=== PATIENT | male | born 1945 | race Caucasian/White ===

== ENCOUNTER 2017-09-21 09:44 | Day surgery (SDC) | payer OTHER ==
[2017-09-21 10:11] VITALS: BMI 27.2
[2017-09-21] MEDS ORDERED: PROPOFOL 20 ML ONE ×2 (10:31)
[2017-09-21 11:02] VITALS: TEMP 97.7
[2017-09-21 11:44] VITALS: BP 137/72; PULSE 51
--- NOTE | 2017-09-26 09:43 | PATH ---
Surgical Pathology Report Patient Name: RONA CORTES [facility]. Rec. #: [id number] /Age/Gender: 1945 (Age: 72) / M Account: [id number] Location: [facility]-ENDOSCOPY Taken: 09/21/2017 Received: 09/21/2017 Reported: 09/26/2017 Physicians: David Burks M.D. Specimen(s) Received A: BX SECOND PORTION DUODENUM AND BULB B: ANTRUM Clinical History It Abdominal pain, history of colon polyps Postoperative diagnosis: Duodenal bulb ulcer, gastritis Final Diagnosis A. DUODENUM, SECOND PORTION AND DUODENAL BULB, BIOPSY: DUODENAL MUCOSA WITH VASCULAR CONGESTION, FOCAL ACUTE HEMORRHAGE, AND EROSION. B. STOMACH, ANTRUM, BIOPSY: GASTRIC ANTRAL MUCOSA WITH MILD CHRONIC GASTRITIS. IMMUNOHISTOCHEMICAL STAIN FOR H. PYLORI IS NEGATIVE. Electronically Signed Judy Lawson M.D. Gross Description A. Received in formalin, labeled "biopsy second portion of duodenum and bulb" are 3 meyer, irregular portions of soft tissue ranging from 0.4-0.6 cm. in greatest dimension. The specimens are submitted in toto in one cassette. B. Received in formalin, labeled "antrum" are 2 meyer, irregular portions of soft tissue measuring 0.5 and 0.7 cm. in greatest dimension. The specimens are submitted in toto in one cassette. 09/21/201709/21/2017
== END 2017-09-21 12:04 | disposition home or self-care (01) ==
LOC: JASU-ENDO 09:44
PROVIDERS: ATTEND Internal Medicine Gastroenterology
PROC: 0DB98ZX Excision of Duodenum, Via Natural or Artificial Opening Endoscopic, Diagnostic (ICD-10-PCS; principal; 2017-09-21)
PROC: 0DB68ZX Excision of Stomach, Via Natural or Artificial Opening Endoscopic, Diagnostic (ICD-10-PCS; 2017-09-21)
DX: K29.50 Unspecified chronic gastritis without bleeding (principal); K26.9 Duodenal ulcer, unspecified as acute or chronic, without hemorrhage or perforation; I10 Essential (primary) hypertension; E78.5 Hyperlipidemia, unspecified
CPT/HCPCS: 88305-TC; 88342-TC

== ENCOUNTER 2018-01-04 09:35 | Day surgery (SDC) | payer OTHER ==
[2018-01-04 10:02] VITALS: BMI 28.8
[2018-01-04 11:05] VITALS: TEMP 98.1
[2018-01-04 11:23] VITALS: PULSE 53
[2018-01-04 11:50] VITALS: BP 141/71
--- NOTE | 2018-01-05 15:59 | PATH ---
Surgical Pathology Report Patient Name: RONA CORTES [facility]. Rec. #: [id number] /Age/Gender: 1945 (Age: 72) / M Account: [id number] Location: U-ENDOSCOPY Taken: 01/04/2018 Received: 01/04/2018 Reported: 01/05/2018 Physicians: David Burks M.D. Specimen(s) Received A: BX DUODENUM B: BX ANTRUM C: BX BODY Clinical History History of duodenal ulcer Postoperative diagnosis: Duodenitis, gastritis Final Diagnosis A. DUODENUM, BIOPSY: DUODENAL MUCOSA WITH MILD ACUTE AND CHRONIC DUODENITIS. B. STOMACH, ANTRUM, BIOPSY: GASTRIC ANTRAL MUCOSA WITH MILD CHRONIC GASTRITIS. IMMUNOHISTOCHEMICAL STAIN FOR H. PYLORI IS NEGATIVE. C. STOMACH, BODY, BIOPSY: GASTRIC BODY MUCOSA WITH MILD CHRONIC GASTRITIS. IMMUNOHISTOCHEMICAL STAIN FOR H. PYLORI IS NEGATIVE. Electronically Signed Judy Lawson M.D. Gross Description A. Received in formalin, labeled "biopsy duodenum" are 4 meyer, irregular portions of soft tissue ranging from 0.2-0.3 cm. in greatest dimension. The specimens are submitted in toto in one cassette. B. Received in formalin, labeled "biopsy antrum" are 2 meyer, irregular portions of soft tissue measuring 0.3 and 0.4 cm. in greatest dimension. The specimens are submitted in toto in one cassette. C. Received in formalin, labeled "biopsy body" are 2 meyer, irregular portions of soft tissue measuring 0.3 and 0.8 cm. in greatest dimension. The specimens are submitted in toto in one cassette. 01/04/2018 [facility]01/04/2018
== END 2018-01-04 11:50 | disposition home or self-care (01) ==
LOC: JASU-ENDO 09:35
PROVIDERS: ATTEND Internal Medicine Gastroenterology
PROC: 0DB68ZX Excision of Stomach, Via Natural or Artificial Opening Endoscopic, Diagnostic (ICD-10-PCS; 2018-01-04)
PROC: 0DB98ZX Excision of Duodenum, Via Natural or Artificial Opening Endoscopic, Diagnostic (ICD-10-PCS; principal; 2018-01-04 11:00)
DX: Z13.810 Encounter for screening for upper gastrointestinal disorder (principal); K29.80 Duodenitis without bleeding; K29.50 Unspecified chronic gastritis without bleeding; I10 Essential (primary) hypertension; E78.5 Hyperlipidemia, unspecified
CPT/HCPCS: 88305-TC; 88342-TC

== ENCOUNTER 2020-08-18 04:46 | Day surgery (SDC) | payer OTHER ==
[2020-08-15 13:55] VITALS: BMI 28.9
[2020-08-18 12:16] VITALS: BP 125/64; PULSE 70; TEMP 98
== END 2020-08-18 11:50 | disposition home or self-care (01) ==
LOC: JASU-ENDO 04:46
PROVIDERS: ATTEND Internal Medicine Gastroenterology
PROC: 0DBL8ZX Excision of Transverse Colon, Via Natural or Artificial Opening Endoscopic, Diagnostic (ICD-10-PCS; principal; 2020-08-18 09:30)
DX: Z12.11 Encounter for screening for malignant neoplasm of colon (principal); Z86.010 Personal history of colon polyps; K63.5 Polyp of colon; K57.30 Diverticulosis of large intestine without perforation or abscess without bleeding; K64.8 Other hemorrhoids; Z98.0 Intestinal bypass and anastomosis status; I10 Essential (primary) hypertension; E78.5 Hyperlipidemia, unspecified
CPT/HCPCS: 88305-TC